=== PATIENT | male | born 1990 | race Two or more races ===

== ENCOUNTER 2024-01-25 12:57 | Emergency (ER) | payer BC ==
[~2024-01-25] VITALS: Ht 177.8 cm; Wt 97.5 kg
[2024-01-25 13:28] VITALS: TEMP 98.2
[2024-01-25] MEDS ORDERED: HYDROCODONE/APAP 10/325MG TABLET ONE (14:04)
[2024-01-25] MEDS: HYDROCODONE/APAP 10/325MG TABLET PO ONE (14:06)
[2024-01-25] MEDS ORDERED: IBUP-1953 PO (15:02)
[2024-01-25] MEDS ORDERED: HYDR-3972 PO (15:02)
[2024-01-25 15:33] VITALS: BP 138/79; O2SAT 100
== END 2024-01-25 15:28 | disposition home or self-care (01) ==
LOC: ER 12:57
DX: S86.012A Strain of left Achilles tendon, initial encounter (principal); Z60.2 Problems related to living alone; X58.XXXA Exposure to other specified factors, initial encounter; Y93.61 Activity, american tackle football; Y92.89 Other specified places as the place of occurrence of the external cause; Y99.8 Other external cause status